=== PATIENT | female | born 1955 | race Caucasian/White ===

== ENCOUNTER 2020-06-23 13:13 | Inpatient (IN) ==
[2020-06-23] MEDS ORDERED: *HR* Dabigatran 150 MG CAPSULE PO SCH (21:00)
[2020-06-23] MEDS: Sennosides/Docusate Sodium TABLET PO SCH (21:15)
[2020-06-23] MEDS: Melatonin 3 MG TABLET PO SCH (21:15)
[2020-06-24 07:20] LABS: Basophils % 0.4 %; Eosinophils # 0.1 K/mcL (0.0-0.6); Eosinophils % 1.1 %; Hematocrit 38.1 % (35.3-44.9); Hemoglobin 12.4 g/dL (11.5-15.4); Immature Granulocytes % 0.3 % (0-4); Lymphocytes # 2.3 K/mcL (0.6-4.6); Lymphocytes % 29.8 %; Mean Corpuscular HGB Conc 32.5 g/dL (31.6-35.5); Mean Corpuscular Hemoglobin 30.6 pg (28.0-33.3); Mean Corpuscular Volume 94.1 fL (83.0-100.0); Mean Platelet Volume 11.2 fL (9.4-12.4); Monocytes # 0.5 K/mcL (0.0-1.3); Monocytes % 6.8 %; Neutrophils # 4.8 K/mcL (1.6-8.9); Platelet Count 261 K/mcL (140-400); Red Blood Count 4.05 M/mcL (3.82-4.97); Red Cell Distribution Width 13.5 % (11.5-14.5); Segmented Neutrophils % 61.6 %; White Blood Count 7.8 K/mcL (4.3-11.1)
[2020-06-24 07:44] LABS: BUN/Creatinine Ratio 31 (6-26); Blood Urea Nitrogen 16 mg/dL (8-23); Calcium 8.9 mg/dL (8.6-10.3); Carbon Dioxide 25 mEq/L (23-29); Chloride 110 mEq/L (98-107); Glucose 105 mg/dL (70-105); Osmolality,Calculated 302 (280-300); Potassium 3.2 mEq/L (3.5-5.1); Sodium 145 mEq/L (136-145); eGFR For African Americans > 60 (> 60); eGFR For Non-African Americans > 60 (> 60)
[2020-06-24] MEDS ORDERED: Multivit/Ca/Min/Fe/FA 1 TAB TABLET PO SCH (09:00)
[2020-06-24] MEDS ORDERED: Amantadine Oral Soln 50 MG/5 ML UDC PO SCH (09:00)
[2020-06-24] MEDS ORDERED: *HR* Dabigatran 75 MG CAPSULE PO SCH (09:00)
[2020-06-24] MEDS: Sennosides/Docusate Sodium TABLET PO SCH (10:46)
[2020-06-24] MEDS: Cholecalciferol (D-3) 1,000 UNIT (25MCG) TABLET PO SCH (10:46)
[2020-06-24] MEDS: amLODIPine 5 MG TABLET PO SCH (10:49)
[2020-06-24] MEDS: *HR* Enoxaparin 80 MG/0.8 ML SYRINGE SQ SCH (18:02)
[2020-06-24] MEDS: Melatonin 3 MG TABLET PO SCH (21:49)
[2020-06-24] MEDS ORDERED: *HR* Heparin 5,000 UNIT/ML VIAL SQ SCH (22:00)
[2020-06-25] MEDS: *HR* Enoxaparin 80 MG/0.8 ML SYRINGE SQ SCH ×2 (05:59→17:13)
[2020-06-25] MEDS ORDERED: Ondansetron ODT 4 MG TAB.RAPDIS SL ONE (09:50)
[2020-06-25] MEDS: amLODIPine 5 MG TABLET PO SCH (11:23)
[2020-06-25] MEDS: Cholecalciferol (D-3) 1,000 UNIT (25MCG) TABLET PO SCH (11:28)
[2020-06-25] MEDS: Multivitamin Liquid 15 ML UDC PO SCH (11:47)
[2020-06-25] MEDS: Melatonin 3 MG TABLET PO SCH ×2 (20:41→20:48)
[2020-06-26] MEDS: *HR* Enoxaparin 80 MG/0.8 ML SYRINGE SQ SCH ×2 (06:36→17:27)
[2020-06-26] MEDS: amLODIPine 5 MG TABLET PO SCH (08:55)
[2020-06-26] MEDS: Multivitamin Liquid 15 ML UDC PO SCH (08:55)
[2020-06-26] MEDS: Cholecalciferol (D-3) 1,000 UNIT (25MCG) TABLET PO SCH (08:56)
[2020-06-26] MEDS: Melatonin 3 MG TABLET PO SCH (20:10)
[2020-06-27] MEDS: *HR* Enoxaparin 80 MG/0.8 ML SYRINGE SQ SCH ×2 (05:45→17:00)
[2020-06-27] MEDS: Cholecalciferol (D-3) 1,000 UNIT (25MCG) TABLET PO SCH (08:45)
[2020-06-27] MEDS: Multivitamin Liquid 15 ML UDC PO SCH (08:45)
[2020-06-27] MEDS: amLODIPine 5 MG TABLET PO SCH (08:46)
[2020-06-27] MEDS: Melatonin 3 MG TABLET PO SCH (20:57)
[2020-06-28] MEDS: *HR* Enoxaparin 80 MG/0.8 ML SYRINGE SQ SCH ×2 (05:53→17:51)
[2020-06-28 08:21] LABS: Hematocrit 38.1 % (35.3-44.9); Hemoglobin 12.3 g/dL (11.5-15.4); Mean Corpuscular HGB Conc 32.3 g/dL (31.6-35.5); Mean Corpuscular Hemoglobin 30.1 pg (28.0-33.3); Mean Corpuscular Volume 93.4 fL (83.0-100.0); Mean Platelet Volume 11.7 fL (9.4-12.4); Platelet Count 230 K/mcL (140-400); Red Blood Count 4.08 M/mcL (3.82-4.97); Red Cell Distribution Width 13.6 % (11.5-14.5); White Blood Count 7.6 K/mcL (4.3-11.1)
[2020-06-28 08:28] LABS: INR 1.4; Prothrombin Time 16.2 Seconds (9.4-12.1)
[2020-06-28] MEDS: amLODIPine 5 MG TABLET PO SCH (08:30)
[2020-06-28] MEDS: Cholecalciferol (D-3) 1,000 UNIT (25MCG) TABLET PO SCH ×2 (08:31→14:04)
[2020-06-28] MEDS: Multivitamin Liquid 15 ML UDC PO SCH (08:32)
[2020-06-28 08:41] LABS: BUN/Creatinine Ratio 25 (6-26); Blood Urea Nitrogen 15 mg/dL (8-23); Calcium 8.9 mg/dL (8.6-10.3); Carbon Dioxide 27 mEq/L (23-29); Chloride 107 mEq/L (98-107); Glucose 102 mg/dL (70-105); Osmolality,Calculated 299 (280-300); Sodium 144 mEq/L (136-145); eGFR For African Americans > 60 (> 60); eGFR For Non-African Americans > 60 (> 60)
[2020-06-28] MEDS: Potassium Chloride Elixir 20 MEQ/15 ML UDC PO SCH (11:30)
[2020-06-28] MEDS: Melatonin 3 MG TABLET PO SCH (19:41)
[2020-06-28] MEDS: Amantadine Oral Soln 50 MG/5 ML UDC PO SCH (19:41)
[2020-06-29] MEDS: *HR* Enoxaparin 80 MG/0.8 ML SYRINGE SQ SCH ×2 (05:41→17:18)
[2020-06-29] MEDS: Cholecalciferol (D-3) 1,000 UNIT (25MCG) TABLET PO SCH (08:34)
[2020-06-29] MEDS: amLODIPine 5 MG TABLET PO SCH (08:34)
[2020-06-29] MEDS: Amantadine Oral Soln 50 MG/5 ML UDC PO SCH ×2 (08:34→19:52)
[2020-06-29] MEDS: Potassium Chloride Elixir 20 MEQ/15 ML UDC PO SCH (08:35)
[2020-06-29] MEDS: Multivitamin Liquid 15 ML UDC PO SCH (08:35)
[2020-06-29] MEDS: Melatonin 3 MG TABLET PO SCH (19:52)
[2020-06-30] MEDS: *HR* Enoxaparin 80 MG/0.8 ML SYRINGE SQ SCH ×2 (05:25→17:18)
[2020-06-30] MEDS: Cholecalciferol (D-3) 1,000 UNIT (25MCG) TABLET PO SCH (12:16)
[2020-06-30] MEDS: Multivitamin Liquid 15 ML UDC PO SCH (12:16)
[2020-06-30] MEDS: Potassium Chloride Elixir 20 MEQ/15 ML UDC PO SCH (12:16)
[2020-06-30] MEDS: amLODIPine 5 MG TABLET PO SCH (12:16)
[2020-06-30] MEDS: Amantadine Oral Soln 50 MG/5 ML UDC PO SCH ×2 (12:17→19:37)
[2020-06-30] MEDS: Melatonin 3 MG TABLET PO SCH (19:37)
[2020-07-01] MEDS: *HR* Enoxaparin 80 MG/0.8 ML SYRINGE SQ SCH ×2 (05:20→16:52)
[2020-07-01] MEDS: Potassium Chloride Elixir 20 MEQ/15 ML UDC PO SCH (09:05)
[2020-07-01] MEDS: Cholecalciferol (D-3) 1,000 UNIT (25MCG) TABLET PO SCH (09:05)
[2020-07-01] MEDS: amLODIPine 5 MG TABLET PO SCH (09:06)
[2020-07-01] MEDS: Multivitamin Liquid 15 ML UDC PO SCH (09:20)
[2020-07-01] MEDS: Amantadine Oral Soln 50 MG/5 ML UDC PO SCH ×2 (09:20→20:58)
[2020-07-01] MEDS: Melatonin 3 MG TABLET PO SCH (20:58)
[2020-07-02] MEDS: *HR* Enoxaparin 80 MG/0.8 ML SYRINGE SQ SCH (05:42)
[2020-07-02 08:37] LABS: Basophils % 0.3 %; Eosinophils # 0.1 K/mcL (0.0-0.6); Eosinophils % 1.3 %; Hematocrit 42.1 % (35.3-44.9); Hemoglobin 13.8 g/dL (11.5-15.4); Immature Granulocytes % 0.3 % (0-4); Lymphocytes # 2.5 K/mcL (0.6-4.6); Lymphocytes % 32.9 %; Mean Corpuscular HGB Conc 32.8 g/dL (31.6-35.5); Mean Corpuscular Hemoglobin 30.7 pg (28.0-33.3); Mean Corpuscular Volume 93.6 fL (83.0-100.0); Mean Platelet Volume 11.7 fL (9.4-12.4); Monocytes # 0.6 K/mcL (0.0-1.3); Monocytes % 7.3 %; Neutrophils # 4.3 K/mcL (1.6-8.9); Platelet Count 280 K/mcL (140-400); Red Cell Distribution Width 14.1 % (11.5-14.5); Segmented Neutrophils % 57.9 %; White Blood Count 7.5 K/mcL (4.3-11.1)
[2020-07-02 08:54] LABS: BUN/Creatinine Ratio 32 (6-26); Blood Urea Nitrogen 19 mg/dL (8-23); Calcium 9.5 mg/dL (8.6-10.3); Carbon Dioxide 27 mEq/L (23-29); Chloride 109 mEq/L (98-107); Glucose 97 mg/dL (70-105); Osmolality,Calculated 308 (280-300); Sodium 148 mEq/L (136-145); eGFR For African Americans > 60 (> 60); eGFR For Non-African Americans > 60 (> 60)
[2020-07-02] MEDS: Potassium Chloride Elixir 20 MEQ/15 ML UDC PO SCH (09:43)
[2020-07-02] MEDS: Multivitamin Liquid 15 ML UDC PO SCH (09:43)
[2020-07-02] MEDS: Cholecalciferol (D-3) 1,000 UNIT (25MCG) TABLET PO SCH (09:44)
[2020-07-02] MEDS: Amantadine Oral Soln 50 MG/5 ML UDC PO SCH ×2 (09:44→20:45)
[2020-07-02] MEDS: amLODIPine 5 MG TABLET PO SCH (09:44)
[2020-07-02] MEDS: Melatonin 3 MG TABLET PO SCH (20:32)
[2020-07-02] MEDS: *HR* Dabigatran 75 MG CAPSULE PO SCH (20:32)
[2020-07-03] MEDS: *HR* Dabigatran 75 MG CAPSULE PO SCH ×2 (08:23→21:19)
[2020-07-03] MEDS: Cholecalciferol (D-3) 1,000 UNIT (25MCG) TABLET PO SCH (08:24)
[2020-07-03] MEDS: amLODIPine 5 MG TABLET PO SCH (08:24)
[2020-07-03] MEDS: Amantadine Oral Soln 50 MG/5 ML UDC PO SCH ×2 (08:24→21:20)
[2020-07-03] MEDS: Multivitamin Liquid 15 ML UDC PO SCH (08:25)
[2020-07-03] MEDS: Melatonin 3 MG TABLET PO SCH (21:21)
[2020-07-04 06:11] LABS: Basophils % 0.4 %; Eosinophils # 0.1 K/mcL (0.0-0.6); Eosinophils % 1.3 %; Hematocrit 39.4 % (35.3-44.9); Hemoglobin 12.9 g/dL (11.5-15.4); Immature Granulocytes % 0.4 % (0-4); Lymphocytes # 2.2 K/mcL (0.6-4.6); Lymphocytes % 26.7 %; Mean Corpuscular HGB Conc 32.7 g/dL (31.6-35.5); Mean Corpuscular Hemoglobin 30.6 pg (28.0-33.3); Mean Corpuscular Volume 93.4 fL (83.0-100.0); Mean Platelet Volume 11.3 fL (9.4-12.4); Monocytes # 0.7 K/mcL (0.0-1.3); Monocytes % 8.1 %; Neutrophils # 5.2 K/mcL (1.6-8.9); Platelet Count 270 K/mcL (140-400); Red Blood Count 4.22 M/mcL (3.82-4.97); Red Cell Distribution Width 14.3 % (11.5-14.5); Segmented Neutrophils % 63.1 %; White Blood Count 8.3 K/mcL (4.3-11.1)
[2020-07-04 06:34] LABS: BUN/Creatinine Ratio 30 (6-26); Blood Urea Nitrogen 17 mg/dL (8-23); Carbon Dioxide 26 mEq/L (23-29); Chloride 112 mEq/L (98-107); Glucose 105 mg/dL (70-105); Magnesium 2.1 mg/dL (1.6-2.6); Osmolality,Calculated 308 (280-300); Potassium 3.2 mEq/L (3.5-5.1); Sodium 148 mEq/L (136-145); eGFR For African Americans > 60 (> 60); eGFR For Non-African Americans > 60 (> 60)
[2020-07-04] MEDS: Cholecalciferol (D-3) 1,000 UNIT (25MCG) TABLET PO SCH (08:45)
[2020-07-04] MEDS: amLODIPine 5 MG TABLET PO SCH (08:45)
[2020-07-04] MEDS: Multivit/Ca/Min/Fe/FA 1 TAB TABLET PO SCH (08:45)
[2020-07-04] MEDS: Amantadine Oral Soln 50 MG/5 ML UDC PO SCH ×2 (08:46→19:41)
[2020-07-04] MEDS: *HR* Dabigatran 75 MG CAPSULE PO SCH ×2 (08:46→19:40)
[2020-07-04] MEDS: Ringers Solution, Lactated 1,000 ML IVC SCH ×2 (11:11→19:41)
[2020-07-04] MEDS: Melatonin 3 MG TABLET PO SCH (19:41)
[2020-07-05] MEDS: Amantadine Oral Soln 50 MG/5 ML UDC PO SCH ×2 (08:55→21:17)
[2020-07-05] MEDS: *HR* Dabigatran 75 MG CAPSULE PO SCH ×2 (08:56→21:17)
[2020-07-05] MEDS: amLODIPine 5 MG TABLET PO SCH (08:56)
[2020-07-05] MEDS: Cholecalciferol (D-3) 1,000 UNIT (25MCG) TABLET PO SCH (08:56)
[2020-07-05] MEDS: Multivit/Ca/Min/Fe/FA 1 TAB TABLET PO SCH (08:57)
[2020-07-05] MEDS: Ringers Solution, Lactated 1,000 ML IVC SCH ×2 (12:41→13:30)
[2020-07-05] MEDS: Melatonin 3 MG TABLET PO SCH (21:17)
[2020-07-06 07:55] LABS: BUN/Creatinine Ratio 15 (6-26); Blood Urea Nitrogen 7 mg/dL (8-23); Calcium 8.8 mg/dL (8.6-10.3); Carbon Dioxide 27 mEq/L (23-29); Chloride 106 mEq/L (98-107); Glucose 101 mg/dL (70-105); Osmolality,Calculated 288 (280-300); Potassium 3.4 mEq/L (3.5-5.1); Sodium 140 mEq/L (136-145); eGFR For African Americans > 60 (> 60); eGFR For Non-African Americans > 60 (> 60)
[2020-07-06] MEDS: amLODIPine 5 MG TABLET PO SCH (08:00)
[2020-07-06] MEDS: *HR* Dabigatran 75 MG CAPSULE PO SCH ×2 (08:01→20:23)
[2020-07-06] MEDS: Amantadine Oral Soln 50 MG/5 ML UDC PO SCH ×2 (08:02→20:23)
[2020-07-06] MEDS: Cholecalciferol (D-3) 1,000 UNIT (25MCG) TABLET PO SCH (08:02)
[2020-07-06] MEDS: Multivit/Ca/Min/Fe/FA 1 TAB TABLET PO SCH (08:02)
[2020-07-06] MEDS: Melatonin 3 MG TABLET PO SCH (20:23)
[2020-07-07] MEDS: Amantadine Oral Soln 50 MG/5 ML UDC PO SCH ×2 (08:47→20:55)
[2020-07-07] MEDS: Cholecalciferol (D-3) 1,000 UNIT (25MCG) TABLET PO SCH (08:48)
[2020-07-07] MEDS: *HR* Dabigatran 75 MG CAPSULE PO SCH ×2 (08:48→20:55)
[2020-07-07] MEDS: amLODIPine 5 MG TABLET PO SCH (08:48)
[2020-07-07] MEDS: Multivit/Ca/Min/Fe/FA 1 TAB TABLET PO SCH (08:48)
[2020-07-07] MEDS: Melatonin 3 MG TABLET PO SCH (20:55)
[2020-07-08] MEDS: *HR* Dabigatran 75 MG CAPSULE PO SCH ×2 (10:03→20:33)
[2020-07-08] MEDS: amLODIPine 5 MG TABLET PO SCH (10:03)
[2020-07-08] MEDS: Amantadine Oral Soln 50 MG/5 ML UDC PO SCH ×2 (10:03→20:34)
[2020-07-08] MEDS: Cholecalciferol (D-3) 1,000 UNIT (25MCG) TABLET PO SCH (10:03)
[2020-07-08] MEDS: Multivit/Ca/Min/Fe/FA 1 TAB TABLET PO SCH (10:03)
[2020-07-08] MEDS: Melatonin 3 MG TABLET PO SCH (20:33)
[2020-07-09] MEDS: *HR* Dabigatran 75 MG CAPSULE PO SCH ×2 (09:54→19:45)
[2020-07-09] MEDS: amLODIPine 5 MG TABLET PO SCH (09:55)
[2020-07-09] MEDS: Multivit/Ca/Min/Fe/FA 1 TAB TABLET PO SCH (09:55)
[2020-07-09] MEDS: Cholecalciferol (D-3) 1,000 UNIT (25MCG) TABLET PO SCH (09:55)
[2020-07-09] MEDS: Amantadine Oral Soln 50 MG/5 ML UDC PO SCH ×2 (09:56→19:45)
[2020-07-09] MEDS: Melatonin 3 MG TABLET PO SCH (19:45)
[2020-07-10] MEDS: amLODIPine 5 MG TABLET PO SCH (08:35)
[2020-07-10] MEDS: *HR* Dabigatran 75 MG CAPSULE PO SCH ×2 (08:35→21:29)
[2020-07-10] MEDS: Multivit/Ca/Min/Fe/FA 1 TAB TABLET PO SCH (08:36)
[2020-07-10] MEDS: Amantadine Oral Soln 50 MG/5 ML UDC PO SCH ×2 (08:36→21:28)
[2020-07-10] MEDS: Cholecalciferol (D-3) 1,000 UNIT (25MCG) TABLET PO SCH (09:47)
[2020-07-10] MEDS: Megestrol Acetate 400 MG/10 ML UDC PO SCH (11:50)
[2020-07-10 12:23] LABS: Hematocrit 36.1 % (35.3-44.9); Hemoglobin 11.7 g/dL (11.5-15.4); Mean Corpuscular HGB Conc 32.4 g/dL (31.6-35.5); Mean Corpuscular Hemoglobin 30.1 pg (28.0-33.3); Mean Corpuscular Volume 92.8 fL (83.0-100.0); Mean Platelet Volume 10.7 fL (9.4-12.4); Platelet Count 263 K/mcL (140-400); Red Blood Count 3.89 M/mcL (3.82-4.97); Red Cell Distribution Width 14.3 % (11.5-14.5); White Blood Count 9.9 K/mcL (4.3-11.1)
[2020-07-10 13:11] LABS: Alanine Aminotransferase 41 Units/L (7-52); Albumin 3.5 g/dL (3.5-5.7); Albumin/Globulin Ratio 1.3 (1.1-2.2); Alkaline Phosphatase 81 Units/L (34-104); Aspartate Amino Transferase 23 Units/L (13-39); BUN/Creatinine Ratio 15 (6-26); Bilirubin,Total 0.4 mg/dL (0.3-1.0); Blood Urea Nitrogen 7 mg/dL (8-23); Carbon Dioxide 23 mEq/L (23-29); Chloride 106 mEq/L (98-107); Globulin 2.8 g/dL (2.4-3.5); Glucose 113 mg/dL (70-105); Osmolality,Calculated 287 (280-300); Potassium 3.7 mEq/L (3.5-5.1); Sodium 139 mEq/L (136-145); Total Protein 6.3 g/dL (6.4-8.9); eGFR For African Americans > 60 (> 60); eGFR For Non-African Americans > 60 (> 60)
[2020-07-10] MEDS: Melatonin 3 MG TABLET PO SCH (21:29)
[2020-07-11] MEDS: Megestrol Acetate 400 MG/10 ML UDC PO SCH (08:49)
[2020-07-11] MEDS: Cholecalciferol (D-3) 1,000 UNIT (25MCG) TABLET PO SCH (08:50)
[2020-07-11] MEDS: *HR* Dabigatran 75 MG CAPSULE PO SCH ×2 (09:08→20:47)
[2020-07-11] MEDS: Multivit/Ca/Min/Fe/FA 1 TAB TABLET PO SCH ×2 (09:09→09:23)
[2020-07-11] MEDS: amLODIPine 5 MG TABLET PO SCH (09:09)
[2020-07-11] MEDS: Amantadine Oral Soln 50 MG/5 ML UDC PO SCH ×2 (10:21→20:55)
[2020-07-11] MEDS: Melatonin 3 MG TABLET PO SCH (20:47)
[2020-07-12] MEDS: amLODIPine 5 MG TABLET PO SCH (10:16)
[2020-07-12] MEDS: Amantadine Oral Soln 50 MG/5 ML UDC PO SCH ×2 (11:57→20:48)
[2020-07-12] MEDS: Multivit/Ca/Min/Fe/FA 1 TAB TABLET PO SCH (11:58)
[2020-07-12] MEDS: Cholecalciferol (D-3) 1,000 UNIT (25MCG) TABLET PO SCH (11:58)
[2020-07-12] MEDS: Megestrol Acetate 400 MG/10 ML UDC PO SCH (11:58)
[2020-07-12] MEDS: *HR* Dabigatran 75 MG CAPSULE PO SCH ×2 (12:41→20:48)
[2020-07-12] MEDS: Melatonin 3 MG TABLET PO SCH (20:48)
[2020-07-13] MEDS: Amantadine Oral Soln 50 MG/5 ML UDC PO SCH ×2 (09:00→21:30)
[2020-07-13] MEDS: amLODIPine 5 MG TABLET PO SCH (10:18)
[2020-07-13] MEDS: *HR* Dabigatran 75 MG CAPSULE PO SCH ×2 (10:19→21:30)
[2020-07-13] MEDS: Megestrol Acetate 400 MG/10 ML UDC PO SCH (10:26)
[2020-07-13] MEDS: Cholecalciferol (D-3) 1,000 UNIT (25MCG) TABLET PO SCH (10:29)
[2020-07-13] MEDS: Multivit/Ca/Min/Fe/FA 1 TAB TABLET PO SCH (10:29)
[2020-07-13] MEDS: Melatonin 3 MG TABLET PO SCH (21:30)
[2020-07-14] MEDS: *HR* Dabigatran 75 MG CAPSULE PO SCH ×2 (07:31→20:46)
[2020-07-14] MEDS: Multivit/Ca/Min/Fe/FA 1 TAB TABLET PO SCH (07:32)
[2020-07-14] MEDS: Cholecalciferol (D-3) 1,000 UNIT (25MCG) TABLET PO SCH (07:32)
[2020-07-14] MEDS: amLODIPine 5 MG TABLET PO SCH (07:32)
[2020-07-14] MEDS: Megestrol Acetate 400 MG/10 ML UDC PO SCH (07:33)
[2020-07-14] MEDS: Amantadine Oral Soln 50 MG/5 ML UDC PO SCH ×2 (09:34→20:46)
[2020-07-14] MEDS: Melatonin 3 MG TABLET PO SCH (20:46)
[2020-07-15] MEDS: Cholecalciferol (D-3) 1,000 UNIT (25MCG) TABLET PO SCH (10:10)
[2020-07-15] MEDS: Megestrol Acetate 400 MG/10 ML UDC PO SCH (10:13)
[2020-07-15] MEDS: Potassium Chloride Elixir 20 MEQ/15 ML UDC PO SCH (10:13)
[2020-07-15] MEDS: amLODIPine 5 MG TABLET PO SCH (10:14)
[2020-07-15] MEDS: Amantadine Oral Soln 50 MG/5 ML UDC PO SCH ×2 (10:14→20:25)
[2020-07-15] MEDS: Multivitamin Liquid 15 ML UDC PO SCH (10:15)
[2020-07-15] MEDS: *HR* Dabigatran 75 MG CAPSULE PO SCH ×2 (10:28→20:25)
[2020-07-15] MEDS: Melatonin 3 MG TABLET PO SCH (20:25)
[2020-07-15] MEDS: Multivit/Ca/Min/Fe/FA 1 TAB TABLET PO SCH (20:33)
[2020-07-16] MEDS: Multivitamin Liquid 15 ML UDC PO SCH (08:49)
[2020-07-16] MEDS: Amantadine Oral Soln 50 MG/5 ML UDC PO SCH ×2 (08:49→19:52)
[2020-07-16] MEDS: Cholecalciferol (D-3) 1,000 UNIT (25MCG) TABLET PO SCH (08:50)
[2020-07-16] MEDS: *HR* Dabigatran 75 MG CAPSULE PO SCH ×2 (08:50→19:51)
[2020-07-16] MEDS: Megestrol Acetate 400 MG/10 ML UDC PO SCH ×2 (08:50→09:07)
[2020-07-16] MEDS: Potassium Chloride Elixir 20 MEQ/15 ML UDC PO SCH (08:51)
[2020-07-16] MEDS: amLODIPine 5 MG TABLET PO SCH (08:52)
[2020-07-16] MEDS: Melatonin 3 MG TABLET PO SCH (19:52)
[2020-07-17] MEDS: Amantadine Oral Soln 50 MG/5 ML UDC PO SCH ×2 (08:41→21:57)
[2020-07-17] MEDS: Multivitamin Liquid 15 ML UDC PO SCH (08:41)
[2020-07-17] MEDS: Megestrol Acetate 400 MG/10 ML UDC PO SCH (08:41)
[2020-07-17] MEDS: Potassium Chloride Elixir 20 MEQ/15 ML UDC PO SCH (08:41)
[2020-07-17] MEDS: *HR* Dabigatran 75 MG CAPSULE PO SCH ×2 (08:42→21:57)
[2020-07-17] MEDS: amLODIPine 5 MG TABLET PO SCH (08:42)
[2020-07-17] MEDS: Cholecalciferol (D-3) 1,000 UNIT (25MCG) TABLET PO SCH (08:42)
[2020-07-17] MEDS: Melatonin 3 MG TABLET PO SCH (21:57)
[2020-07-18] MEDS: *HR* Dabigatran 75 MG CAPSULE PO SCH ×2 (07:30→22:18)
[2020-07-18] MEDS: Cholecalciferol (D-3) 1,000 UNIT (25MCG) TABLET PO SCH (07:31)
[2020-07-18] MEDS: Megestrol Acetate 400 MG/10 ML UDC PO SCH (07:31)
[2020-07-18] MEDS: Potassium Chloride Elixir 20 MEQ/15 ML UDC PO SCH (07:31)
[2020-07-18] MEDS: amLODIPine 5 MG TABLET PO SCH (07:31)
[2020-07-18] MEDS: Amantadine Oral Soln 50 MG/5 ML UDC PO SCH ×2 (07:32→22:23)
[2020-07-18] MEDS: Multivitamin Liquid 15 ML UDC PO SCH (07:32)
[2020-07-18] MEDS: Melatonin 3 MG TABLET PO SCH (22:18)
[2020-07-19] MEDS: *HR* Dabigatran 75 MG CAPSULE PO SCH ×2 (09:09→20:08)
[2020-07-19] MEDS: Potassium Chloride Elixir 20 MEQ/15 ML UDC PO SCH (09:09)
[2020-07-19] MEDS: Amantadine Oral Soln 50 MG/5 ML UDC PO SCH ×2 (09:09→20:08)
[2020-07-19] MEDS: amLODIPine 5 MG TABLET PO SCH (09:09)
[2020-07-19] MEDS: Megestrol Acetate 400 MG/10 ML UDC PO SCH (09:09)
[2020-07-19] MEDS: Multivitamin Liquid 15 ML UDC PO SCH (09:09)
[2020-07-19] MEDS: Cholecalciferol (D-3) 1,000 UNIT (25MCG) TABLET PO SCH (09:10)
[2020-07-19] MEDS: Melatonin 3 MG TABLET PO SCH (20:08)
[2020-07-20] MEDS: *HR* Dabigatran 75 MG CAPSULE PO SCH ×3 (08:21→20:33)
[2020-07-20] MEDS: Cholecalciferol (D-3) 1,000 UNIT (25MCG) TABLET PO SCH (08:21)
[2020-07-20] MEDS: Amantadine Oral Soln 50 MG/5 ML UDC PO SCH ×2 (08:29→20:25)
[2020-07-20] MEDS: Megestrol Acetate 400 MG/10 ML UDC PO SCH (08:29)
[2020-07-20] MEDS: Multivitamin Liquid 15 ML UDC PO SCH (08:31)
[2020-07-20] MEDS: Potassium Chloride Elixir 20 MEQ/15 ML UDC PO SCH (08:31)
[2020-07-20] MEDS: amLODIPine 5 MG TABLET PO SCH (08:32)
[2020-07-20] MEDS: Melatonin 3 MG TABLET PO SCH (20:26)
[2020-07-21 06:03] LABS: Basophils % 0.3 %; Eosinophils # 0.1 K/mcL (0.0-0.6); Eosinophils % 1.3 %; Hematocrit 34.3 % (35.3-44.9); Hemoglobin 11.4 g/dL (11.5-15.4); Immature Granulocytes % 0.3 % (0-4); Lymphocytes # 2.5 K/mcL (0.6-4.6); Mean Corpuscular HGB Conc 33.2 g/dL (31.6-35.5); Mean Corpuscular Hemoglobin 30.8 pg (28.0-33.3); Mean Corpuscular Volume 92.7 fL (83.0-100.0); Mean Platelet Volume 9.7 fL (9.4-12.4); Monocytes # 0.6 K/mcL (0.0-1.3); Monocytes % 7.4 %; Neutrophils # 4.5 K/mcL (1.6-8.9); Platelet Count 305 K/mcL (140-400); Red Cell Distribution Width 14.6 % (11.5-14.5); Segmented Neutrophils % 58.7 %; White Blood Count 7.7 K/mcL (4.3-11.1)
[2020-07-21 06:19] LABS: BUN/Creatinine Ratio 20 (6-26); Blood Urea Nitrogen 9 mg/dL (8-23); Calcium 9.4 mg/dL (8.6-10.3); Carbon Dioxide 23 mEq/L (23-29); Chloride 108 mEq/L (98-107); Glucose 98 mg/dL (70-105); Osmolality,Calculated 291 (280-300); Potassium 3.8 mEq/L (3.5-5.1); Sodium 141 mEq/L (136-145); eGFR For African Americans > 60 (> 60); eGFR For Non-African Americans > 60 (> 60)
[2020-07-21] MEDS: *HR* Dabigatran 75 MG CAPSULE PO SCH (08:22)
[2020-07-21] MEDS: amLODIPine 5 MG TABLET PO SCH (08:31)
[2020-07-21] MEDS: Cholecalciferol (D-3) 1,000 UNIT (25MCG) TABLET PO SCH (08:31)
[2020-07-21] MEDS: Amantadine Oral Soln 50 MG/5 ML UDC PO SCH ×2 (08:32→23:05)
[2020-07-21] MEDS: Potassium Chloride Elixir 20 MEQ/15 ML UDC PO SCH (08:32)
[2020-07-21] MEDS: Multivitamin Liquid 15 ML UDC PO SCH (08:32)
[2020-07-21] MEDS: Megestrol Acetate 400 MG/10 ML UDC PO SCH (08:32)
[2020-07-21] MEDS ORDERED: *HR* Heparin 5,000 UNIT/ML VIAL IVP ONE (20:54)
[2020-07-21] MEDS ORDERED: *HR* Heparin 5,000 UNIT/ML VIAL IVP PRN ×2 (20:54)
[2020-07-21] MEDS ORDERED: Heparin 25,000UNIT/250ML 1/2NS 25,000 UNIT/250 ML IV.SOLN IVC SCH (21:00)
[2020-07-21] MEDS: Melatonin 3 MG TABLET PO SCH (23:04)
[2020-07-21] MEDS: *HR* Enoxaparin 40 MG/0.4 ML SYRINGE SQ SCH (23:04)
[2020-07-22] MEDS: amLODIPine 5 MG TABLET PO SCH (08:45)
[2020-07-22] MEDS: Potassium Chloride Elixir 20 MEQ/15 ML UDC PO SCH (08:45)
[2020-07-22] MEDS: Megestrol Acetate 400 MG/10 ML UDC PO SCH (08:46)
[2020-07-22] MEDS: Multivitamin Liquid 15 ML UDC PO SCH (08:46)
[2020-07-22] MEDS: Cholecalciferol (D-3) 1,000 UNIT (25MCG) TABLET PO SCH (08:46)
[2020-07-22] MEDS: Amantadine Oral Soln 50 MG/5 ML UDC PO SCH ×2 (08:46→20:19)
[2020-07-22] MEDS: *HR* Enoxaparin 40 MG/0.4 ML SYRINGE SQ SCH (20:19)
[2020-07-22] MEDS: Melatonin 3 MG TABLET PO SCH (20:19)
[2020-07-23] MEDS: Potassium Chloride Elixir 20 MEQ/15 ML UDC PO SCH (09:50)
[2020-07-23] MEDS: Amantadine Oral Soln 50 MG/5 ML UDC PO SCH ×2 (09:51→20:58)
[2020-07-23] MEDS: Megestrol Acetate 400 MG/10 ML UDC PO SCH (09:51)
[2020-07-23] MEDS: Multivitamin Liquid 15 ML UDC PO SCH (09:51)
[2020-07-23] MEDS: Cholecalciferol (D-3) 1,000 UNIT (25MCG) TABLET PO SCH (09:52)
[2020-07-23] MEDS: amLODIPine 5 MG TABLET PO SCH (09:52)
[2020-07-23] MEDS: Melatonin 3 MG TABLET PO SCH (20:57)
[2020-07-23] MEDS: *HR* Enoxaparin 40 MG/0.4 ML SYRINGE SQ SCH (20:58)
[2020-07-24] MEDS: Multivitamin Liquid 15 ML UDC PO SCH (08:28)
[2020-07-24] MEDS: Amantadine Oral Soln 50 MG/5 ML UDC PO SCH ×2 (08:28→19:56)
[2020-07-24] MEDS: Megestrol Acetate 400 MG/10 ML UDC PO SCH (08:29)
[2020-07-24] MEDS: amLODIPine 5 MG TABLET PO SCH (08:29)
[2020-07-24] MEDS: Potassium Chloride Elixir 20 MEQ/15 ML UDC PO SCH (08:29)
[2020-07-24] MEDS: Cholecalciferol (D-3) 1,000 UNIT (25MCG) TABLET PO SCH (08:29)
[2020-07-24] MEDS: *HR* Enoxaparin 40 MG/0.4 ML SYRINGE SQ SCH (19:56)
[2020-07-24] MEDS: Melatonin 3 MG TABLET PO SCH (19:56)
[2020-07-25] MEDS: Cholecalciferol (D-3) 1,000 UNIT (25MCG) TABLET PO SCH (09:31)
[2020-07-25] MEDS: amLODIPine 5 MG TABLET PO SCH (09:31)
[2020-07-25] MEDS: Megestrol Acetate 400 MG/10 ML UDC PO SCH (09:32)
[2020-07-25] MEDS: Multivitamin Liquid 15 ML UDC PO SCH (09:32)
[2020-07-25] MEDS: Potassium Chloride Elixir 20 MEQ/15 ML UDC PO SCH (09:32)
[2020-07-25] MEDS: Amantadine Oral Soln 50 MG/5 ML UDC PO SCH ×2 (09:32→22:06)
[2020-07-25] MEDS: Melatonin 3 MG TABLET PO SCH (22:06)
[2020-07-25] MEDS: *HR* Enoxaparin 40 MG/0.4 ML SYRINGE SQ SCH (22:06)
[2020-07-26] MEDS: Potassium Chloride Elixir 20 MEQ/15 ML UDC PO SCH (09:48)
[2020-07-26] MEDS: Amantadine Oral Soln 50 MG/5 ML UDC PO SCH ×2 (09:48→21:15)
[2020-07-26] MEDS: Multivitamin Liquid 15 ML UDC PO SCH (09:49)
[2020-07-26] MEDS: Megestrol Acetate 400 MG/10 ML UDC PO SCH (09:49)
[2020-07-26] MEDS: Cholecalciferol (D-3) 1,000 UNIT (25MCG) TABLET PO SCH (09:49)
[2020-07-26] MEDS: amLODIPine 5 MG TABLET PO SCH (09:50)
[2020-07-26] MEDS: Melatonin 3 MG TABLET PO SCH (21:15)
[2020-07-26] MEDS: *HR* Enoxaparin 40 MG/0.4 ML SYRINGE SQ SCH (21:15)
[2020-07-27] MEDS: Cholecalciferol (D-3) 1,000 UNIT (25MCG) TABLET PO SCH (09:57)
[2020-07-27] MEDS: amLODIPine 5 MG TABLET PO SCH (09:57)
[2020-07-27] MEDS: Amantadine Oral Soln 50 MG/5 ML UDC PO SCH ×2 (09:58→20:27)
[2020-07-27] MEDS: Megestrol Acetate 400 MG/10 ML UDC PO SCH (09:58)
[2020-07-27] MEDS: Potassium Chloride Elixir 20 MEQ/15 ML UDC PO SCH (09:58)
[2020-07-27] MEDS: Multivitamin Liquid 15 ML UDC PO SCH (09:58)
[2020-07-27] MEDS: *HR* Enoxaparin 40 MG/0.4 ML SYRINGE SQ SCH (20:27)
[2020-07-27] MEDS: Melatonin 3 MG TABLET PO SCH (20:27)
[2020-07-28] MEDS: Cholecalciferol (D-3) 1,000 UNIT (25MCG) TABLET PO SCH (10:14)
[2020-07-28] MEDS: amLODIPine 5 MG TABLET PO SCH (10:14)
[2020-07-28] MEDS: Megestrol Acetate 400 MG/10 ML UDC PO SCH (10:15)
[2020-07-28] MEDS: Multivitamin Liquid 15 ML UDC PO SCH (10:15)
[2020-07-28] MEDS: Potassium Chloride Elixir 20 MEQ/15 ML UDC PO SCH (10:15)
[2020-07-28] MEDS: Amantadine Oral Soln 50 MG/5 ML UDC PO SCH ×2 (10:16→20:08)
[2020-07-28] MEDS: Melatonin 3 MG TABLET PO SCH (20:07)
[2020-07-28] MEDS: *HR* Enoxaparin 40 MG/0.4 ML SYRINGE SQ SCH (20:08)
[2020-07-29] MEDS: Cholecalciferol (D-3) 1,000 UNIT (25MCG) TABLET PO SCH (10:03)
[2020-07-29] MEDS: amLODIPine 5 MG TABLET PO SCH (10:03)
[2020-07-29] MEDS: Amantadine Oral Soln 50 MG/5 ML UDC PO SCH ×2 (10:04→20:49)
[2020-07-29] MEDS: Potassium Chloride Elixir 20 MEQ/15 ML UDC PO SCH (10:04)
[2020-07-29] MEDS: Megestrol Acetate 400 MG/10 ML UDC PO SCH (10:04)
[2020-07-29] MEDS: Multivitamin Liquid 15 ML UDC PO SCH (10:05)
[2020-07-29] MEDS: Melatonin 3 MG TABLET PO SCH (20:49)
[2020-07-29] MEDS: *HR* Enoxaparin 40 MG/0.4 ML SYRINGE SQ SCH (20:50)
[2020-07-30] MEDS: Megestrol Acetate 400 MG/10 ML UDC PO SCH (08:01)
[2020-07-30] MEDS: Potassium Chloride Elixir 20 MEQ/15 ML UDC PO SCH (08:01)
[2020-07-30] MEDS: Amantadine Oral Soln 50 MG/5 ML UDC PO SCH ×2 (08:02→20:11)
[2020-07-30] MEDS: Multivitamin Liquid 15 ML UDC PO SCH (08:02)
[2020-07-30] MEDS: Cholecalciferol (D-3) 1,000 UNIT (25MCG) TABLET PO SCH (08:02)
[2020-07-30] MEDS: amLODIPine 5 MG TABLET PO SCH (09:23)
[2020-07-30] MEDS: Melatonin 3 MG TABLET PO SCH (20:11)
[2020-07-30] MEDS: *HR* Dabigatran 75 MG CAPSULE PO SCH (20:11)
[2020-07-31] MEDS: Multivitamin Liquid 15 ML UDC PO SCH (07:38)
[2020-07-31] MEDS: Megestrol Acetate 400 MG/10 ML UDC PO SCH (07:38)
[2020-07-31] MEDS: Amantadine Oral Soln 50 MG/5 ML UDC PO SCH (07:39)
[2020-07-31] MEDS: Cholecalciferol (D-3) 1,000 UNIT (25MCG) TABLET PO SCH (07:39)
[2020-07-31] MEDS: Potassium Chloride Elixir 20 MEQ/15 ML UDC PO SCH (07:39)
[2020-07-31] MEDS: amLODIPine 5 MG TABLET PO SCH (07:40)
[2020-07-31] MEDS: *HR* Dabigatran 75 MG CAPSULE PO SCH (07:40)
[2020-08-01] MEDS: *HR* Dabigatran 75 MG CAPSULE PO SCH ×3 (00:25→21:07)
[2020-08-01] MEDS: Amantadine Oral Soln 50 MG/5 ML UDC PO SCH ×3 (00:26→21:07)
[2020-08-01] MEDS: Melatonin 3 MG TABLET PO SCH ×2 (00:54→21:07)
[2020-08-01] MEDS: Potassium Chloride Elixir 20 MEQ/15 ML UDC PO SCH (10:16)
[2020-08-01] MEDS: Megestrol Acetate 400 MG/10 ML UDC PO SCH (10:16)
[2020-08-01] MEDS: amLODIPine 5 MG TABLET PO SCH (10:16)
[2020-08-01] MEDS: Cholecalciferol (D-3) 1,000 UNIT (25MCG) TABLET PO SCH (10:16)
[2020-08-01] MEDS: Multivitamin Liquid 15 ML UDC PO SCH (10:17)
[2020-08-02 06:58] LABS: Basophils # 0.1 K/mcL (0.0-0.2); Basophils % 0.5 %; Eosinophils # 0.1 K/mcL (0.0-0.6); Eosinophils % 0.8 %; Hematocrit 34.5 % (35.3-44.9); Hemoglobin 11.3 g/dL (11.5-15.4); Immature Granulocytes % 0.8 % (0-4); Lymphocytes # 2.8 K/mcL (0.6-4.6); Lymphocytes % 30.6 %; Mean Corpuscular HGB Conc 32.8 g/dL (31.6-35.5); Mean Corpuscular Hemoglobin 30.8 pg (28.0-33.3); Mean Platelet Volume 9.7 fL (9.4-12.4); Monocytes # 0.8 K/mcL (0.0-1.3); Neutrophils # 5.4 K/mcL (1.6-8.9); Platelet Count 396 K/mcL (140-400); Red Blood Count 3.67 M/mcL (3.82-4.97); Red Cell Distribution Width 16.4 % (11.5-14.5); Segmented Neutrophils % 58.3 %; White Blood Count 9.2 K/mcL (4.3-11.1)
[2020-08-02 07:25] LABS: BUN/Creatinine Ratio 21 (6-26); Blood Urea Nitrogen 9 mg/dL (8-23); Calcium 9.1 mg/dL (8.6-10.3); Carbon Dioxide 22 mEq/L (23-29); Chloride 108 mEq/L (98-107); Glucose 101 mg/dL (70-105); Osmolality,Calculated 289 (280-300); Potassium 3.6 mEq/L (3.5-5.1); Sodium 140 mEq/L (136-145); eGFR For African Americans > 60 (> 60); eGFR For Non-African Americans > 60 (> 60)
[2020-08-02] MEDS: amLODIPine 5 MG TABLET PO SCH (10:36)
[2020-08-02] MEDS: *HR* Dabigatran 75 MG CAPSULE PO SCH ×2 (10:37→20:05)
[2020-08-02] MEDS: Cholecalciferol (D-3) 1,000 UNIT (25MCG) TABLET PO SCH (10:39)
[2020-08-02] MEDS: Potassium Chloride Elixir 20 MEQ/15 ML UDC PO SCH (10:39)
[2020-08-02] MEDS: Megestrol Acetate 400 MG/10 ML UDC PO SCH (10:40)
[2020-08-02] MEDS: Amantadine Oral Soln 50 MG/5 ML UDC PO SCH (10:41)
[2020-08-02] MEDS: Multivitamin Liquid 15 ML UDC PO SCH (10:41)
[2020-08-02] MEDS: Melatonin 3 MG TABLET PO SCH (20:04)
[2020-08-03] MEDS: *HR* Dabigatran 75 MG CAPSULE PO SCH ×2 (09:50→19:30)
[2020-08-03] MEDS: Cholecalciferol (D-3) 1,000 UNIT (25MCG) TABLET PO SCH (09:52)
[2020-08-03] MEDS: amLODIPine 5 MG TABLET PO SCH (09:52)
[2020-08-03] MEDS: Multivit/Ca/Min/Fe/FA 1 TAB TABLET PO SCH (09:52)
[2020-08-03] MEDS: Potassium Chloride Elixir 20 MEQ/15 ML UDC PO SCH (09:53)
[2020-08-03] MEDS: Sennosides 8.6 MG TABLET PO SCH ×2 (10:01→19:30)
[2020-08-03] MEDS: Melatonin 3 MG TABLET PO SCH (19:30)
[2020-08-04] MEDS: Megestrol Acetate 400 MG/10 ML UDC PO SCH (01:20)
[2020-08-04] MEDS: *HR* Dabigatran 75 MG CAPSULE PO SCH ×2 (08:21→20:17)
[2020-08-04] MEDS: Potassium Chloride Elixir 20 MEQ/15 ML UDC PO SCH (08:22)
[2020-08-04] MEDS: amLODIPine 5 MG TABLET PO SCH (08:22)
[2020-08-04] MEDS: Sennosides 8.6 MG TABLET PO SCH ×2 (08:22→20:17)
[2020-08-04] MEDS: Cholecalciferol (D-3) 1,000 UNIT (25MCG) TABLET PO SCH (08:22)
[2020-08-04] MEDS: Multivit/Ca/Min/Fe/FA 1 TAB TABLET PO SCH (08:22)
[2020-08-04] MEDS: Melatonin 3 MG TABLET PO SCH (20:17)
[2020-08-05] MEDS: Potassium Chloride Elixir 20 MEQ/15 ML UDC PO SCH (09:22)
[2020-08-05] MEDS: *HR* Dabigatran 75 MG CAPSULE PO SCH ×2 (09:23→19:53)
[2020-08-05] MEDS: Multivit/Ca/Min/Fe/FA 1 TAB TABLET PO SCH (09:23)
[2020-08-05] MEDS: Sennosides 8.6 MG TABLET PO SCH ×2 (09:23→19:53)
[2020-08-05] MEDS: amLODIPine 5 MG TABLET PO SCH (09:23)
[2020-08-05] MEDS: Cholecalciferol (D-3) 1,000 UNIT (25MCG) TABLET PO SCH (09:34)
[2020-08-05] MEDS: Melatonin 3 MG TABLET PO SCH (19:54)
[2020-08-06] MEDS: Cholecalciferol (D-3) 1,000 UNIT (25MCG) TABLET PO SCH (08:07)
[2020-08-06] MEDS: Potassium Chloride Elixir 20 MEQ/15 ML UDC PO SCH (08:07)
[2020-08-06] MEDS: Multivit/Ca/Min/Fe/FA 1 TAB TABLET PO SCH (08:07)
[2020-08-06] MEDS: Sennosides 8.6 MG TABLET PO SCH ×2 (08:07→20:44)
[2020-08-06] MEDS: *HR* Dabigatran 75 MG CAPSULE PO SCH ×2 (08:08→20:44)
[2020-08-06] MEDS: amLODIPine 5 MG TABLET PO SCH (08:08)
[2020-08-06] MEDS: Melatonin 3 MG TABLET PO SCH (20:44)
[2020-08-07] MEDS: Acetaminophen 325 MG TABLET PO PRN (06:45)
[2020-08-07] MEDS: *HR* Dabigatran 75 MG CAPSULE PO SCH ×2 (10:08→22:31)
[2020-08-07] MEDS: Potassium Chloride Elixir 20 MEQ/15 ML UDC PO SCH (10:08)
[2020-08-07] MEDS: Cholecalciferol (D-3) 1,000 UNIT (25MCG) TABLET PO SCH (10:08)
[2020-08-07] MEDS: Multivit/Ca/Min/Fe/FA 1 TAB TABLET PO SCH (10:08)
[2020-08-07] MEDS: Sennosides 8.6 MG TABLET PO SCH ×2 (10:08→22:32)
[2020-08-07] MEDS: amLODIPine 5 MG TABLET PO SCH (10:09)
[2020-08-07] MEDS: Melatonin 3 MG TABLET PO SCH (22:31)
[2020-08-08] MEDS: amLODIPine 5 MG TABLET PO SCH (09:53)
[2020-08-08] MEDS: *HR* Dabigatran 75 MG CAPSULE PO SCH ×2 (09:53→20:11)
[2020-08-08] MEDS: Sennosides 8.6 MG TABLET PO SCH ×2 (09:54→20:12)
[2020-08-08] MEDS: Multivit/Ca/Min/Fe/FA 1 TAB TABLET PO SCH (09:54)
[2020-08-08] MEDS: Cholecalciferol (D-3) 1,000 UNIT (25MCG) TABLET PO SCH (09:54)
[2020-08-08] MEDS: Potassium Chloride Elixir 20 MEQ/15 ML UDC PO SCH (09:54)
[2020-08-08] MEDS: Melatonin 3 MG TABLET PO SCH (20:11)
[2020-08-08] MEDS: Acetaminophen 325 MG TABLET PO PRN (20:12)
[2020-08-09 06:29] LABS: Basophils % 0.4 %; Eosinophils # 0.1 K/mcL (0.0-0.6); Eosinophils % 1.2 %; Hematocrit 37.5 % (35.3-44.9); Hemoglobin 12.3 g/dL (11.5-15.4); Immature Granulocytes % 0.5 % (0-4); Lymphocytes # 2.6 K/mcL (0.6-4.6); Mean Corpuscular HGB Conc 32.8 g/dL (31.6-35.5); Mean Corpuscular Hemoglobin 31.1 pg (28.0-33.3); Mean Corpuscular Volume 94.7 fL (83.0-100.0); Mean Platelet Volume 10.2 fL (9.4-12.4); Monocytes # 0.6 K/mcL (0.0-1.3); Monocytes % 7.5 %; Neutrophils # 4.4 K/mcL (1.6-8.9); Platelet Count 363 K/mcL (140-400); Red Blood Count 3.96 M/mcL (3.82-4.97); Segmented Neutrophils % 56.4 %; White Blood Count 7.7 K/mcL (4.3-11.1)
[2020-08-09 06:50] LABS: BUN/Creatinine Ratio 23 (6-26); Blood Urea Nitrogen 15 mg/dL (8-23); Calcium 9.4 mg/dL (8.6-10.3); Carbon Dioxide 24 mEq/L (23-29); Chloride 108 mEq/L (98-107); Glucose 81 mg/dL (70-105); Osmolality,Calculated 292 (280-300); Potassium 3.8 mEq/L (3.5-5.1); Sodium 141 mEq/L (136-145); eGFR For African Americans > 60 (> 60); eGFR For Non-African Americans > 60 (> 60)
[2020-08-09 07:05] LABS: Thyroid Stimulating Hormone 0.963 mcIU/mL (0.340-5.600)
[2020-08-09] MEDS: *HR* Dabigatran 75 MG CAPSULE PO SCH ×2 (08:45→20:35)
[2020-08-09] MEDS: amLODIPine 5 MG TABLET PO SCH (08:45)
[2020-08-09] MEDS: Multivit/Ca/Min/Fe/FA 1 TAB TABLET PO SCH (08:46)
[2020-08-09] MEDS: Cholecalciferol (D-3) 1,000 UNIT (25MCG) TABLET PO SCH (08:46)
[2020-08-09] MEDS: Potassium Chloride Elixir 20 MEQ/15 ML UDC PO SCH (08:47)
[2020-08-09] MEDS: Sennosides 8.6 MG TABLET PO SCH ×2 (09:43→20:35)
[2020-08-09 09:49] LABS: Triiodothyronine (T3) Free 2.8 pg/mL (2.50-3.90)
[2020-08-09 09:54] LABS: Triiodothyronine (T3) Total 1.58 ng/mL (0.87-1.78)
[2020-08-09] MEDS: traZODone 50 MG TABLET PO SCH (20:35)
[2020-08-10] MEDS: amLODIPine 5 MG TABLET PO SCH (09:32)
[2020-08-10] MEDS: Multivit/Ca/Min/Fe/FA 1 TAB TABLET PO SCH (09:32)
[2020-08-10] MEDS: Sennosides 8.6 MG TABLET PO SCH ×2 (09:32→19:25)
[2020-08-10] MEDS: Cholecalciferol (D-3) 1,000 UNIT (25MCG) TABLET PO SCH (09:33)
[2020-08-10] MEDS: *HR* Dabigatran 75 MG CAPSULE PO SCH ×2 (09:33→19:25)
[2020-08-10] MEDS: Potassium Chloride Elixir 20 MEQ/15 ML UDC PO SCH (09:34)
[2020-08-10] MEDS: traZODone 50 MG TABLET PO SCH (19:26)
[2020-08-10] MEDS: OLANZapine 5 MG TAB.RAPDIS PO PRN (19:27)
[2020-08-11] MEDS: Potassium Chloride Elixir 20 MEQ/15 ML UDC PO SCH (08:44)
[2020-08-11] MEDS: Sennosides 8.6 MG TABLET PO SCH ×2 (08:45→19:54)
[2020-08-11] MEDS: Cholecalciferol (D-3) 1,000 UNIT (25MCG) TABLET PO SCH (08:45)
[2020-08-11] MEDS: *HR* Dabigatran 75 MG CAPSULE PO SCH ×2 (08:45→19:55)
[2020-08-11] MEDS: amLODIPine 5 MG TABLET PO SCH (08:46)
[2020-08-11] MEDS: Multivit/Ca/Min/Fe/FA 1 TAB TABLET PO SCH (08:46)
[2020-08-11] MEDS: OLANZapine 5 MG TAB.RAPDIS PO PRN (19:55)
[2020-08-12] MEDS: traZODone 50 MG TABLET PO SCH ×2 (00:40→21:35)
[2020-08-12] MEDS: Multivit/Ca/Min/Fe/FA 1 TAB TABLET PO SCH (09:08)
[2020-08-12] MEDS: Potassium Chloride Elixir 20 MEQ/15 ML UDC PO SCH (09:08)
[2020-08-12] MEDS: Sennosides 8.6 MG TABLET PO SCH ×2 (09:09→21:35)
[2020-08-12] MEDS: amLODIPine 5 MG TABLET PO SCH (09:09)
[2020-08-12] MEDS: *HR* Dabigatran 75 MG CAPSULE PO SCH ×2 (09:09→21:34)
[2020-08-12] MEDS: Cholecalciferol (D-3) 1,000 UNIT (25MCG) TABLET PO SCH (09:09)
[2020-08-13 08:01] LABS: Basophils % 0.5 %; Eosinophils # 0.1 K/mcL (0.0-0.6); Eosinophils % 1.8 %; Hematocrit 35.1 % (35.3-44.9); Hemoglobin 11.4 g/dL (11.5-15.4); Immature Granulocytes % 0.4 % (0-4); Lymphocytes # 2.6 K/mcL (0.6-4.6); Lymphocytes % 32.3 %; Mean Corpuscular HGB Conc 32.5 g/dL (31.6-35.5); Mean Corpuscular Hemoglobin 31.1 pg (28.0-33.3); Mean Corpuscular Volume 95.9 fL (83.0-100.0); Mean Platelet Volume 9.7 fL (9.4-12.4); Monocytes # 0.7 K/mcL (0.0-1.3); Monocytes % 8.6 %; Neutrophils # 4.5 K/mcL (1.6-8.9); Platelet Count 320 K/mcL (140-400); Red Blood Count 3.66 M/mcL (3.82-4.97); Red Cell Distribution Width 15.9 % (11.5-14.5); Segmented Neutrophils % 56.4 %
[2020-08-13 08:30] LABS: Alanine Aminotransferase 21 Units/L (7-52); Albumin 3.6 g/dL (3.5-5.7); Albumin/Globulin Ratio 1.2 (1.1-2.2); Alkaline Phosphatase 58 Units/L (34-104); Aspartate Amino Transferase 15 Units/L (13-39); BUN/Creatinine Ratio 30 (6-26); Bilirubin,Total 0.3 mg/dL (0.3-1.0); Blood Urea Nitrogen 19 mg/dL (8-23); Carbon Dioxide 23 mEq/L (23-29); Chloride 112 mEq/L (98-107); Glucose 84 mg/dL (70-105); Osmolality,Calculated 297 (280-300); Potassium 3.5 mEq/L (3.5-5.1); Sodium 143 mEq/L (136-145); Total Protein 6.6 g/dL (6.4-8.9); eGFR For African Americans > 60 (> 60); eGFR For Non-African Americans > 60 (> 60)
[2020-08-13] MEDS: *HR* Dabigatran 75 MG CAPSULE PO SCH ×2 (09:04→20:01)
[2020-08-13] MEDS: Potassium Chloride Elixir 20 MEQ/15 ML UDC PO SCH (09:04)
[2020-08-13] MEDS: Multivit/Ca/Min/Fe/FA 1 TAB TABLET PO SCH (09:05)
[2020-08-13] MEDS: Cholecalciferol (D-3) 1,000 UNIT (25MCG) TABLET PO SCH (09:05)
[2020-08-13] MEDS: Sennosides 8.6 MG TABLET PO SCH ×2 (09:05→20:01)
[2020-08-13] MEDS: amLODIPine 5 MG TABLET PO SCH (09:05)
[2020-08-13] MEDS: OLANZapine 5 MG TAB.RAPDIS PO PRN (11:38)
[2020-08-13 19:26] LABS: Bilirubin,Urine Negative (Negative); Blood,Urine Negative (Negative); Clarity,Urine Clear (Clear); Color,Urine Yellow (Yellow); Glucose,Urine (UA) Normal (Normal); Ketones,Urine Negative (Negative); Leukocyte Esterase,Urine Negative (Negative); Nitrite,Urine Negative (Negative); PH,Urine 5.5 pH Units (5.0-8.0); Protein,Urine Negative (Neg-Trace); Specific Gravity,Urine 1.025 (1.010-1.025); Urobilinogen,Urine Normal (Normal)
[2020-08-13] MEDS: traZODone 50 MG TABLET PO SCH (20:01)
[2020-08-14] MEDS: Potassium Chloride Elixir 20 MEQ/15 ML UDC PO SCH (09:11)
[2020-08-14] MEDS: *HR* Dabigatran 75 MG CAPSULE PO SCH ×2 (09:12→20:00)
[2020-08-14] MEDS: Multivit/Ca/Min/Fe/FA 1 TAB TABLET PO SCH (09:12)
[2020-08-14] MEDS: Cholecalciferol (D-3) 1,000 UNIT (25MCG) TABLET PO SCH (09:12)
[2020-08-14] MEDS: Sennosides 8.6 MG TABLET PO SCH ×2 (09:13→20:01)
[2020-08-14] MEDS: amLODIPine 5 MG TABLET PO SCH (09:13)
[2020-08-14] MEDS: Divalproex (24 HR) 250 MG TABLET PO SCH (16:13)
[2020-08-14] MEDS: traZODone 50 MG TABLET PO SCH (20:00)
[2020-08-15] MEDS: Multivit/Ca/Min/Fe/FA 1 TAB TABLET PO SCH (09:56)
[2020-08-15] MEDS: Cholecalciferol (D-3) 1,000 UNIT (25MCG) TABLET PO SCH (09:56)
[2020-08-15] MEDS: Divalproex (24 HR) 250 MG TABLET PO SCH (09:57)
[2020-08-15] MEDS: Sennosides 8.6 MG TABLET PO SCH ×2 (09:57→19:57)
[2020-08-15] MEDS: amLODIPine 5 MG TABLET PO SCH (09:57)
[2020-08-15] MEDS: *HR* Dabigatran 75 MG CAPSULE PO SCH ×2 (09:57→19:57)
[2020-08-15] MEDS: Potassium Chloride Elixir 20 MEQ/15 ML UDC PO SCH (09:57)
[2020-08-15] MEDS: traZODone 50 MG TABLET PO SCH (19:57)
[2020-08-16] MEDS: *HR* Dabigatran 75 MG CAPSULE PO SCH ×2 (08:54→20:09)
[2020-08-16] MEDS: Multivit/Ca/Min/Fe/FA 1 TAB TABLET PO SCH (08:54)
[2020-08-16] MEDS: Sennosides 8.6 MG TABLET PO SCH ×2 (08:54→20:09)
[2020-08-16] MEDS: Cholecalciferol (D-3) 1,000 UNIT (25MCG) TABLET PO SCH (08:54)
[2020-08-16] MEDS: Divalproex (24 HR) 250 MG TABLET PO SCH (08:54)
[2020-08-16] MEDS: amLODIPine 5 MG TABLET PO SCH (08:55)
[2020-08-16] MEDS: Potassium Chloride Elixir 20 MEQ/15 ML UDC PO SCH (08:59)
[2020-08-16] MEDS: traZODone 50 MG TABLET PO SCH (20:09)
[2020-08-17] MEDS: Sennosides 8.6 MG TABLET PO SCH ×2 (09:36→21:04)
[2020-08-17] MEDS: Divalproex (24 HR) 250 MG TABLET PO SCH (09:37)
[2020-08-17] MEDS: amLODIPine 5 MG TABLET PO SCH (09:37)
[2020-08-17] MEDS: *HR* Dabigatran 75 MG CAPSULE PO SCH ×2 (09:38→21:04)
[2020-08-17] MEDS: Potassium Chloride Elixir 20 MEQ/15 ML UDC PO SCH (09:38)
[2020-08-17] MEDS: Multivit/Ca/Min/Fe/FA 1 TAB TABLET PO SCH (09:38)
[2020-08-17] MEDS: Cholecalciferol (D-3) 1,000 UNIT (25MCG) TABLET PO SCH (09:38)
[2020-08-17] MEDS: traZODone 50 MG TABLET PO SCH (21:04)
[2020-08-18] MEDS: Divalproex (24 HR) 250 MG TABLET PO SCH (07:50)
[2020-08-18] MEDS: Sennosides 8.6 MG TABLET PO SCH ×2 (07:50→19:58)
[2020-08-18] MEDS: Multivit/Ca/Min/Fe/FA 1 TAB TABLET PO SCH (07:50)
[2020-08-18] MEDS: *HR* Dabigatran 75 MG CAPSULE PO SCH ×2 (07:50→19:58)
[2020-08-18] MEDS: Cholecalciferol (D-3) 1,000 UNIT (25MCG) TABLET PO SCH (07:50)
[2020-08-18] MEDS: Potassium Chloride Elixir 20 MEQ/15 ML UDC PO SCH (07:51)
[2020-08-18] MEDS: amLODIPine 5 MG TABLET PO SCH (07:51)
[2020-08-18] MEDS: Acetaminophen 325 MG TABLET PO PRN (15:38)
[2020-08-18] MEDS: traZODone 50 MG TABLET PO SCH (19:58)
[2020-08-19] MEDS: Cholecalciferol (D-3) 1,000 UNIT (25MCG) TABLET PO SCH (08:51)
[2020-08-19] MEDS: Multivit/Ca/Min/Fe/FA 1 TAB TABLET PO SCH (08:51)
[2020-08-19] MEDS: amLODIPine 5 MG TABLET PO SCH (08:51)
[2020-08-19] MEDS: Sennosides 8.6 MG TABLET PO SCH ×2 (08:51→19:48)
[2020-08-19] MEDS: Potassium Chloride Elixir 20 MEQ/15 ML UDC PO SCH (08:51)
[2020-08-19] MEDS: Divalproex (24 HR) 250 MG TABLET PO SCH (08:52)
[2020-08-19] MEDS: *HR* Dabigatran 75 MG CAPSULE PO SCH ×2 (08:52→19:48)
[2020-08-19] MEDS: traZODone 50 MG TABLET PO SCH (19:48)
[2020-08-20] MEDS: *HR* Dabigatran 75 MG CAPSULE PO SCH ×2 (08:52→21:19)
[2020-08-20] MEDS: Potassium Chloride Elixir 20 MEQ/15 ML UDC PO SCH (08:52)
[2020-08-20] MEDS: amLODIPine 5 MG TABLET PO SCH (08:53)
[2020-08-20] MEDS: Divalproex (24 HR) 250 MG TABLET PO SCH (08:53)
[2020-08-20] MEDS: Multivit/Ca/Min/Fe/FA 1 TAB TABLET PO SCH (08:53)
[2020-08-20] MEDS: Cholecalciferol (D-3) 1,000 UNIT (25MCG) TABLET PO SCH (08:54)
[2020-08-20] MEDS: OLANZapine 5 MG TAB.RAPDIS PO PRN (08:54)
[2020-08-20] MEDS: Sennosides 8.6 MG TABLET PO SCH ×2 (08:54→21:19)
[2020-08-20] MEDS: OLANZapine 5 MG TAB.RAPDIS PO SCH (16:29)
[2020-08-20] MEDS: traZODone 50 MG TABLET PO SCH (21:19)
[2020-08-21] MEDS: OLANZapine 5 MG TAB.RAPDIS PO SCH ×6 (01:41→23:40)
[2020-08-21] MEDS: Cholecalciferol (D-3) 1,000 UNIT (25MCG) TABLET PO SCH (11:06)
[2020-08-21] MEDS: Multivit/Ca/Min/Fe/FA 1 TAB TABLET PO SCH (11:06)
[2020-08-21] MEDS: amLODIPine 5 MG TABLET PO SCH (11:06)
[2020-08-21] MEDS: Potassium Chloride Elixir 20 MEQ/15 ML UDC PO SCH ×2 (11:06→13:15)
[2020-08-21] MEDS: *HR* Dabigatran 75 MG CAPSULE PO SCH ×2 (11:06→20:54)
[2020-08-21] MEDS: Sennosides 8.6 MG TABLET PO SCH ×3 (11:06→20:54)
[2020-08-21] MEDS: traZODone 50 MG TABLET PO SCH (20:55)
[2020-08-22] MEDS: OLANZapine 5 MG TAB.RAPDIS PO SCH ×3 (05:24→16:10)
[2020-08-22] MEDS: *HR* Dabigatran 75 MG CAPSULE PO SCH (10:08)
[2020-08-22] MEDS: amLODIPine 5 MG TABLET PO SCH (10:08)
[2020-08-22] MEDS: Potassium Chloride Elixir 20 MEQ/15 ML UDC PO SCH (10:09)
[2020-08-22] MEDS: Multivit/Ca/Min/Fe/FA 1 TAB TABLET PO SCH (10:12)
[2020-08-22] MEDS: Cholecalciferol (D-3) 1,000 UNIT (25MCG) TABLET PO SCH (10:12)
[2020-08-22] MEDS: Sennosides 8.6 MG TABLET PO SCH (10:12)
[2020-08-22] MEDS: Acetaminophen 325 MG TABLET PO PRN (16:12)
[2020-08-23] MEDS: *HR* Dabigatran 75 MG CAPSULE PO SCH ×3 (00:05→21:05)
[2020-08-23] MEDS: Sennosides 8.6 MG TABLET PO SCH ×3 (00:06→21:05)
[2020-08-23] MEDS: traZODone 50 MG TABLET PO SCH ×2 (00:06→21:05)
[2020-08-23] MEDS: OLANZapine 5 MG TAB.RAPDIS PO SCH ×2 (05:27→18:06)
[2020-08-23] MEDS: amLODIPine 5 MG TABLET PO SCH (08:00)
[2020-08-23] MEDS: Multivit/Ca/Min/Fe/FA 1 TAB TABLET PO SCH (08:01)
[2020-08-23] MEDS: Acetaminophen 325 MG TABLET PO PRN (08:01)
[2020-08-23] MEDS: Potassium Chloride Elixir 20 MEQ/15 ML UDC PO SCH (08:02)
[2020-08-23] MEDS: Cholecalciferol (D-3) 1,000 UNIT (25MCG) TABLET PO SCH (08:02)
[2020-08-23] MEDS: OLANZapine 5 MG TAB.RAPDIS PO PRN (21:14)
[2020-08-24] MEDS: OLANZapine 5 MG TAB.RAPDIS PO SCH ×2 (06:33→17:36)
[2020-08-24] MEDS: *HR* Dabigatran 75 MG CAPSULE PO SCH ×2 (09:04→21:49)
[2020-08-24] MEDS: Sennosides 8.6 MG TABLET PO SCH ×2 (09:04→21:49)
[2020-08-24] MEDS: Multivit/Ca/Min/Fe/FA 1 TAB TABLET PO SCH (09:05)
[2020-08-24] MEDS: Potassium Chloride Elixir 20 MEQ/15 ML UDC PO SCH (09:05)
[2020-08-24] MEDS: OLANZapine 5 MG TAB.RAPDIS PO PRN (21:48)
[2020-08-24] MEDS: traZODone 50 MG TABLET PO SCH (21:49)
[2020-08-25] MEDS: OLANZapine 5 MG TAB.RAPDIS PO SCH ×2 (06:37→18:16)
[2020-08-25] MEDS: *HR* Dabigatran 75 MG CAPSULE PO SCH ×2 (08:51→21:56)
[2020-08-25] MEDS: Sennosides 8.6 MG TABLET PO SCH ×2 (08:51→21:55)
[2020-08-25] MEDS: Potassium Chloride Elixir 20 MEQ/15 ML UDC PO SCH (08:51)
[2020-08-25] MEDS: Multivit/Ca/Min/Fe/FA 1 TAB TABLET PO SCH (08:51)
[2020-08-25 14:11] LABS: Basophils % 0.5 %; Eosinophils # 0.2 K/mcL (0.0-0.6); Hematocrit 36.9 % (35.3-44.9); Hemoglobin 12.1 g/dL (11.5-15.4); Immature Granulocytes % 0.4 % (0-4); Lymphocytes % 26.1 %; Mean Corpuscular HGB Conc 32.8 g/dL (31.6-35.5); Mean Corpuscular Hemoglobin 31.3 pg (28.0-33.3); Mean Corpuscular Volume 95.3 fL (83.0-100.0); Monocytes # 0.6 K/mcL (0.0-1.3); Neutrophils # 4.7 K/mcL (1.6-8.9); Platelet Count 366 K/mcL (140-400); Red Blood Count 3.87 M/mcL (3.82-4.97); Red Cell Distribution Width 14.9 % (11.5-14.5); White Blood Count 7.5 K/mcL (4.3-11.1)
[2020-08-25 14:20] LABS: Alanine Aminotransferase 15 Units/L (7-52); Albumin 3.7 g/dL (3.5-5.7); Albumin/Globulin Ratio 1.1 (1.1-2.2); Alkaline Phosphatase 64 Units/L (34-104); Aspartate Amino Transferase 14 Units/L (13-39); BUN/Creatinine Ratio 20 (6-26); Bilirubin,Total 0.3 mg/dL (0.3-1.0); Blood Urea Nitrogen 13 mg/dL (8-23); Calcium 9.1 mg/dL (8.6-10.3); Carbon Dioxide 24 mEq/L (23-29); Chloride 109 mEq/L (98-107); Globulin 3.3 g/dL (2.4-3.5); Glucose 138 mg/dL (70-105); Osmolality,Calculated 294 (280-300); Potassium 4.1 mEq/L (3.5-5.1); Sodium 141 mEq/L (136-145); eGFR For African Americans > 60 (> 60); eGFR For Non-African Americans > 60 (> 60)
[2020-08-25 16:33] LABS: Adenovirus Not Detected (Not Detect); Bordetella Pertussis Not Detected (Not Detect); Chlamydophila pneumoniae Not Detected (Not Detect); Coronavirus 229E Not Detected (Not Detect); Coronavirus HKU1 Not Detected (Not Detect); Coronavirus NL63 Not Detected (Not Detect); Coronavirus OC43 Not Detected (Not Detect); Human Metapneumovirus Not Detected (Not Detect); Human Rhinovirus/Enterovirus DETECTED (Not Detect); Influenza A Subtype 2009 H1 Not Detected (Not Detect); Influenza B Not Detected (Not Detect); Mycoplasma pneumoniae Not Detected (Not Detect); Parainfluenza Virus 1 Not Detected (Not Detect); Parainfluenza Virus 2 Not Detected (Not Detect); Parainfluenza Virus 3 Not Detected (Not Detect); Parainfluenza Virus 4 Not Detected (Not Detect); Respiratory Syncytial Virus Not Detected (Not Detect); SARS-CoV-2 Not Detected (Not Detect)
[2020-08-25] MEDS: traZODone 50 MG TABLET PO SCH (21:56)
[2020-08-25] MEDS: OLANZapine 5 MG TAB.RAPDIS PO PRN (21:56)
[2020-08-26] MEDS: OLANZapine 5 MG TAB.RAPDIS PO SCH ×2 (07:00→18:18)
[2020-08-26] MEDS: Potassium Chloride Elixir 20 MEQ/15 ML UDC PO SCH (09:17)
[2020-08-26] MEDS: *HR* Dabigatran 75 MG CAPSULE PO SCH ×2 (09:17→21:11)
[2020-08-26] MEDS: Sennosides 8.6 MG TABLET PO SCH ×2 (09:18→21:12)
[2020-08-26] MEDS: Multivit/Ca/Min/Fe/FA 1 TAB TABLET PO SCH (09:18)
[2020-08-26] MEDS: Acetaminophen 325 MG TABLET PO PRN (10:56)
[2020-08-26] MEDS: amLODIPine 5 MG TABLET PO SCH (14:57)
[2020-08-26] MEDS: Metoprolol XL (24 HR) Succ 50 MG TAB.ER.24H PO SCH (14:57)
[2020-08-26] MEDS: traZODone 50 MG TABLET PO SCH (21:11)
[2020-08-27] MEDS: Acetaminophen 325 MG TABLET PO PRN (05:34)
[2020-08-27] MEDS: OLANZapine 5 MG TAB.RAPDIS PO SCH ×2 (05:34→18:43)
[2020-08-27] MEDS: Sennosides 8.6 MG TABLET PO SCH ×2 (10:54→19:51)
[2020-08-27] MEDS: Loratadine 10 MG TABLET PO SCH (13:23)
[2020-08-27] MEDS: Metoprolol XL (24 HR) Succ 50 MG TAB.ER.24H PO SCH (13:23)
[2020-08-27] MEDS: Multivit/Ca/Min/Fe/FA 1 TAB TABLET PO SCH (13:23)
[2020-08-27] MEDS: amLODIPine 5 MG TABLET PO SCH (13:23)
[2020-08-27] MEDS: *HR* Dabigatran 75 MG CAPSULE PO SCH ×2 (13:23→19:51)
[2020-08-27] MEDS: Potassium Chloride Elixir 20 MEQ/15 ML UDC PO SCH (13:24)
[2020-08-27] MEDS: Fluticasone Propionate Nasal 50 MCG/SPRAY BOTTLE NS SCH (14:27)
[2020-08-27] MEDS: traZODone 50 MG TABLET PO SCH (19:51)
[2020-08-28] MEDS: Acetaminophen 325 MG TABLET PO PRN ×2 (01:07→10:24)
[2020-08-28] MEDS: OLANZapine 5 MG TAB.RAPDIS PO PRN (01:08)
[2020-08-28] MEDS: Metoprolol XL (24 HR) Succ 50 MG TAB.ER.24H PO SCH (08:17)
[2020-08-28] MEDS: Multivit/Ca/Min/Fe/FA 1 TAB TABLET PO SCH (08:17)
[2020-08-28] MEDS: Potassium Chloride Elixir 20 MEQ/15 ML UDC PO SCH (08:17)
[2020-08-28] MEDS: amLODIPine 5 MG TABLET PO SCH (08:17)
[2020-08-28] MEDS: OLANZapine 5 MG TAB.RAPDIS PO SCH ×2 (08:18→18:15)
[2020-08-28] MEDS: *HR* Dabigatran 75 MG CAPSULE PO SCH ×2 (08:18→20:01)
[2020-08-28] MEDS: Loratadine 10 MG TABLET PO SCH (08:18)
[2020-08-28] MEDS: Sennosides 8.6 MG TABLET PO SCH ×2 (08:18→20:01)
[2020-08-28] MEDS: Fluticasone Propionate Nasal 50 MCG/SPRAY BOTTLE NS SCH (08:18)
[2020-08-28] MEDS: traZODone 50 MG TABLET PO SCH (20:01)
[2020-08-29] MEDS: OLANZapine 5 MG TAB.RAPDIS PO SCH ×2 (06:37→17:59)
[2020-08-29] MEDS: Loratadine 10 MG TABLET PO SCH (08:42)
[2020-08-29] MEDS: Potassium Chloride Elixir 20 MEQ/15 ML UDC PO SCH (08:42)
[2020-08-29] MEDS: Multivit/Ca/Min/Fe/FA 1 TAB TABLET PO SCH (08:42)
[2020-08-29] MEDS: amLODIPine 5 MG TABLET PO SCH (08:42)
[2020-08-29] MEDS: Metoprolol XL (24 HR) Succ 50 MG TAB.ER.24H PO SCH (08:43)
[2020-08-29] MEDS: Fluticasone Propionate Nasal 50 MCG/SPRAY BOTTLE NS SCH (08:43)
[2020-08-29] MEDS: *HR* Dabigatran 75 MG CAPSULE PO SCH ×2 (08:43→19:50)
[2020-08-29] MEDS: Sennosides 8.6 MG TABLET PO SCH ×2 (08:43→19:51)
[2020-08-29] MEDS: Ibuprofen 600 MG TABLET PO PRN (17:59)
[2020-08-29] MEDS: traZODone 50 MG TABLET PO SCH (19:50)
[2020-08-30] MEDS: OLANZapine 5 MG TAB.RAPDIS PO PRN (01:05)
[2020-08-30] MEDS: OLANZapine 5 MG TAB.RAPDIS PO SCH ×2 (06:45→17:09)
[2020-08-30] MEDS: Potassium Chloride Elixir 20 MEQ/15 ML UDC PO SCH (08:29)
[2020-08-30] MEDS: *HR* Dabigatran 75 MG CAPSULE PO SCH ×2 (08:30→20:33)
[2020-08-30] MEDS: Loratadine 10 MG TABLET PO SCH (08:30)
[2020-08-30] MEDS: Multivit/Ca/Min/Fe/FA 1 TAB TABLET PO SCH (08:30)
[2020-08-30] MEDS: Metoprolol XL (24 HR) Succ 50 MG TAB.ER.24H PO SCH (08:30)
[2020-08-30] MEDS: amLODIPine 5 MG TABLET PO SCH (08:31)
[2020-08-30] MEDS: Sennosides 8.6 MG TABLET PO SCH ×2 (08:35→20:35)
[2020-08-30] MEDS: Fluticasone Propionate Nasal 50 MCG/SPRAY BOTTLE NS SCH (08:35)
[2020-08-30] MEDS: traZODone 50 MG TABLET PO SCH (20:35)
[2020-08-30] MEDS: Ibuprofen 600 MG TABLET PO PRN (20:35)
[2020-08-31] MEDS: OLANZapine 5 MG TAB.RAPDIS PO PRN ×2 (01:27→23:33)
[2020-08-31] MEDS: Acetaminophen 325 MG TABLET PO PRN ×2 (02:41→23:33)
[2020-08-31] MEDS: OLANZapine 5 MG TAB.RAPDIS PO SCH ×2 (06:40→16:59)
[2020-08-31 08:41] LABS: Basophils % 0.4 %; Eosinophils # 0.1 K/mcL (0.0-0.6); Eosinophils % 1.7 %; Hematocrit 35.5 % (35.3-44.9); Hemoglobin 11.6 g/dL (11.5-15.4); Immature Granulocytes % 0.3 % (0-4); Lymphocytes # 2.5 K/mcL (0.6-4.6); Lymphocytes % 32.3 %; Mean Corpuscular HGB Conc 32.7 g/dL (31.6-35.5); Mean Corpuscular Hemoglobin 30.8 pg (28.0-33.3); Mean Corpuscular Volume 94.2 fL (83.0-100.0); Monocytes # 0.8 K/mcL (0.0-1.3); Monocytes % 9.9 %; Neutrophils # 4.3 K/mcL (1.6-8.9); Platelet Count 427 K/mcL (140-400); Red Blood Count 3.77 M/mcL (3.82-4.97); Red Cell Distribution Width 14.2 % (11.5-14.5); Segmented Neutrophils % 55.4 %; White Blood Count 7.8 K/mcL (4.3-11.1)
[2020-08-31 09:05] LABS: Alanine Aminotransferase 20 Units/L (7-52); Albumin 3.7 g/dL (3.5-5.7); Albumin/Globulin Ratio 1.1 (1.1-2.2); Alkaline Phosphatase 61 Units/L (34-104); Aspartate Amino Transferase 17 Units/L (13-39); BUN/Creatinine Ratio 17 (6-26); Bilirubin,Total 0.3 mg/dL (0.3-1.0); Blood Urea Nitrogen 10 mg/dL (8-23); Calcium 9.5 mg/dL (8.6-10.3); Carbon Dioxide 24 mEq/L (23-29); Chloride 109 mEq/L (98-107); Globulin 3.5 g/dL (2.4-3.5); Glucose 82 mg/dL (70-105); Osmolality,Calculated 294 (280-300); Sodium 143 mEq/L (136-145); Total Protein 7.2 g/dL (6.4-8.9); eGFR For African Americans > 60 (> 60); eGFR For Non-African Americans > 60 (> 60)
[2020-08-31] MEDS: Potassium Chloride Elixir 20 MEQ/15 ML UDC PO SCH (09:14)
[2020-08-31] MEDS: *HR* Dabigatran 75 MG CAPSULE PO SCH ×2 (09:14→19:18)
[2020-08-31] MEDS: amLODIPine 5 MG TABLET PO SCH (09:15)
[2020-08-31] MEDS: Loratadine 10 MG TABLET PO SCH (09:15)
[2020-08-31] MEDS: Sennosides 8.6 MG TABLET PO SCH ×2 (09:16→19:19)
[2020-08-31] MEDS: Fluticasone Propionate Nasal 50 MCG/SPRAY BOTTLE NS SCH (09:16)
[2020-08-31] MEDS: Multivit/Ca/Min/Fe/FA 1 TAB TABLET PO SCH (09:16)
[2020-08-31] MEDS: Metoprolol XL (24 HR) Succ 50 MG TAB.ER.24H PO SCH (09:17)
[2020-08-31] MEDS: traZODone 50 MG TABLET PO SCH (19:19)
[2020-09-01] MEDS: OLANZapine 5 MG TAB.RAPDIS PO SCH ×2 (06:47→17:11)
[2020-09-01] MEDS: Multivit/Ca/Min/Fe/FA 1 TAB TABLET PO SCH (08:21)
[2020-09-01] MEDS: amLODIPine 5 MG TABLET PO SCH (08:22)
[2020-09-01] MEDS: *HR* Dabigatran 75 MG CAPSULE PO SCH ×2 (08:22→22:10)
[2020-09-01] MEDS: Sennosides 8.6 MG TABLET PO SCH ×2 (08:23→22:10)
[2020-09-01] MEDS: Loratadine 10 MG TABLET PO SCH (08:23)
[2020-09-01] MEDS: Potassium Chloride Elixir 20 MEQ/15 ML UDC PO SCH (08:24)
[2020-09-01] MEDS: Metoprolol XL (24 HR) Succ 50 MG TAB.ER.24H PO SCH (08:24)
[2020-09-01] MEDS: Fluticasone Propionate Nasal 50 MCG/SPRAY BOTTLE NS SCH (08:30)
[2020-09-01 18:03] LABS: Adenovirus Not Detected (Not Detect); Bordetella Pertussis Not Detected (Not Detect); Chlamydophila pneumoniae Not Detected (Not Detect); Coronavirus 229E Not Detected (Not Detect); Coronavirus HKU1 Not Detected (Not Detect); Coronavirus NL63 Not Detected (Not Detect); Coronavirus OC43 Not Detected (Not Detect); Human Metapneumovirus Not Detected (Not Detect); Human Rhinovirus/Enterovirus Not Detected (Not Detect); Influenza A Subtype 2009 H1 Not Detected (Not Detect); Influenza B Not Detected (Not Detect); Mycoplasma pneumoniae Not Detected (Not Detect); Parainfluenza Virus 1 Not Detected (Not Detect); Parainfluenza Virus 2 Not Detected (Not Detect); Parainfluenza Virus 3 Not Detected (Not Detect); Parainfluenza Virus 4 Not Detected (Not Detect); Respiratory Syncytial Virus Not Detected (Not Detect); SARS-CoV-2 Not Detected (Not Detect)
[2020-09-01] MEDS: traZODone 50 MG TABLET PO SCH (22:10)
[2020-09-02] MEDS: OLANZapine 5 MG TAB.RAPDIS PO SCH ×2 (05:01→17:04)
[2020-09-02] MEDS: Potassium Chloride Elixir 20 MEQ/15 ML UDC PO SCH (10:26)
[2020-09-02] MEDS: Sennosides 8.6 MG TABLET PO SCH ×2 (10:26→21:25)
[2020-09-02] MEDS: Multivit/Ca/Min/Fe/FA 1 TAB TABLET PO SCH (10:27)
[2020-09-02] MEDS: Metoprolol XL (24 HR) Succ 50 MG TAB.ER.24H PO SCH (10:27)
[2020-09-02] MEDS: amLODIPine 5 MG TABLET PO SCH (10:27)
[2020-09-02] MEDS: *HR* Dabigatran 75 MG CAPSULE PO SCH ×2 (10:27→21:26)
[2020-09-02] MEDS: Fluticasone Propionate Nasal 50 MCG/SPRAY BOTTLE NS SCH (10:30)
[2020-09-02] MEDS: Loratadine 10 MG TABLET PO SCH (10:30)
[2020-09-02] MEDS: OLANZapine 5 MG TAB.RAPDIS PO PRN ×2 (11:12→23:09)
[2020-09-02] MEDS: traZODone 50 MG TABLET PO SCH (21:26)
[2020-09-03] MEDS: Acetaminophen 325 MG TABLET PO PRN ×2 (01:27→14:20)
[2020-09-03] MEDS: OLANZapine 5 MG TAB.RAPDIS PO SCH ×2 (06:27→18:48)
[2020-09-03 07:34] LABS: Hematocrit 35.4 % (35.3-44.9); Hemoglobin 11.6 g/dL (11.5-15.4); Mean Corpuscular HGB Conc 32.8 g/dL (31.6-35.5); Mean Corpuscular Hemoglobin 30.9 pg (28.0-33.3); Mean Corpuscular Volume 94.4 fL (83.0-100.0); Mean Platelet Volume 9.8 fL (9.4-12.4); Platelet Count 414 K/mcL (140-400); Red Blood Count 3.75 M/mcL (3.82-4.97); White Blood Count 9.5 K/mcL (4.3-11.1)
[2020-09-03 07:50] LABS: BUN/Creatinine Ratio 29 (6-26); Blood Urea Nitrogen 15 mg/dL (8-23); Calcium 9.2 mg/dL (8.6-10.3); Carbon Dioxide 24 mEq/L (23-29); Chloride 108 mEq/L (98-107); Glucose 90 mg/dL (70-105); Osmolality,Calculated 292 (280-300); Potassium 3.5 mEq/L (3.5-5.1); Sodium 141 mEq/L (136-145); eGFR For African Americans > 60 (> 60); eGFR For Non-African Americans > 60 (> 60)
[2020-09-03] MEDS: Loratadine 10 MG TABLET PO SCH (08:41)
[2020-09-03] MEDS: Multivit/Ca/Min/Fe/FA 1 TAB TABLET PO SCH (08:41)
[2020-09-03] MEDS: *HR* Dabigatran 75 MG CAPSULE PO SCH ×2 (08:41→20:04)
[2020-09-03] MEDS: Metoprolol XL (24 HR) Succ 50 MG TAB.ER.24H PO SCH (08:41)
[2020-09-03] MEDS: amLODIPine 5 MG TABLET PO SCH (08:41)
[2020-09-03] MEDS: Sennosides 8.6 MG TABLET PO SCH ×2 (08:41→20:05)
[2020-09-03] MEDS: Potassium Chloride Elixir 20 MEQ/15 ML UDC PO SCH (08:42)
[2020-09-03] MEDS: Fluticasone Propionate Nasal 50 MCG/SPRAY BOTTLE NS SCH (08:42)
[2020-09-03] MEDS: Ibuprofen 600 MG TABLET PO PRN (20:05)
[2020-09-03] MEDS: traZODone 50 MG TABLET PO SCH (20:05)
[2020-09-03] MEDS: OLANZapine 5 MG TAB.RAPDIS PO PRN (20:05)
[2020-09-04] MEDS: OLANZapine 5 MG TAB.RAPDIS PO SCH (06:11)
[2020-09-04 07:42] VITALS: BP 149/80
== END 2020-09-04 08:25 | disposition short-term general hospital (02) | DRG 945 ==
LOC: INPPIK 18:08
PROVIDERS: ADMIT Family Medicine; ATTEND Family Medicine